=== PATIENT | female | born 1940 | race Caucasian/White ===

== ENCOUNTER 2020-10-19 10:16 | Observation (INO) | payer MEDICARE ==
--- NOTE | 2020-10-19 10:43 | ED ---
General Adult HPI - General Chief complaint: Syncope Stated complaint: Syncope Time Seen by Provider: 10/19/20 10:17 Source: patient Mode of arrival: ambulatory Limitations: no limitations - History of Present Illness Initial comments: Dictation was produced using [email or web address] dictation software. please excuse any grammatical, word or spelling errors. Chief Complaint: 80-year-old female past medical history dyslipidemia and hypertension, bowel obstruction presents with syncope and abdominal pain History of Present Illness: 80-year-old female she states she was with her for his appointment with the vascular surgeon. During that appointment at 1-2 hours ago patient began having abdominal pain and feeling faint. Patient states she has history of abdominal obstruction. She states her pain is to the periumbilical area cramping. Nonradiating. She states that it's mild to moderate. Not severe. She has a history of bowel obstruction which feels similar. Denies any vomiting but she does feel nauseated. No diarrhea. She's been having regular bowel movements recently. She felt faint and the doctor's office. She states she did not lose consciousness. She denies any cardiac history. The ROS documented in this emergency department record has been reviewed and confirmed by me. Those systems with pertinent positive or negative responses have been documented in the HPI. All other systems are other negative and/or noncontributory. PHYSICAL EXAM: General Impression: Alert and oriented x3, not in acute distress HEENT: Normocephalic atraumatic, extra-ocular movements intact, pupils equal and reactive to light bilaterally, mucous membranes moist. Cardiovascular: Heart regular rate and rhythm Chest: Able to complete full sentences, no retractions, no tachypnea Abdomen: abdomen soft, diffuse abdominal palpatory tenderness, non-distended, no organomegaly Musculoskeletal: Pulses present and equal in all extremities, no peripheral edema Motor: no focal deficits noted Neurological: CN II-XII grossly intact, no focal motor or sensory deficits noted Skin: Intact with no visualized rashes Psych: Normal affect and mood ED course: 80-year-old presents to the emergency department for presyncope and abdominal pain. Laboratory evaluation obtained. CBC unremarkable. Metabolic panel shows mild prerenal azotemia secondary to dehydration. X-ray shows potential partial small bowel obstruction she is reevaluated bedside at 12:12 PM saying that her symptoms have not improved. This concerned that patient has an evolving bowel obstruction. She is agreeable with admission. Patient be admitted to [facility] hospitalist group. Gen. surgery be consulted. EKG interpretation: Ventricular rate 66, sinus rhythm, VT interval 210, QRS 80, QTC 427.. No VT prolongation, no QTC prolongation, no ST or T-wave changes noted. No old EKG for comparison. Overall, this EKG is unremarkable - Related Data Home Medications Medication Instructions Recorded Confirmed Aspirin EC [Ecotrin Low Dose] 81 mg PO HS 10/19/20 10/19/20 Atorvastatin [Lipitor] 20 mg PO HS 10/19/20 10/19/20 Cholecalciferol [Vitamin D3 (25 25 mcg PO BID 10/19/20 10/19/20 Mcg = 1000 Iu)] Cyanocobalamin (Vitamin B-12) 5,000 mcg PO DAILY 10/19/20 10/19/20 [Vitamin B12] Levothyroxine Sodium [Synthroid] 100 mcg PO DAILY 10/19/20 10/19/20 Multivitamins, Thera [Multivitamin 1 tab PO DAILY 10/19/20 10/19/20 (formulary)] Omeprazole 20 mg PO DAILY 10/19/20 10/19/20 Tamoxifen Citrate 20 mg PO DAILY 10/19/20 10/19/20 amLODIPine [Norvasc] 10 mg PO DAILY 10/19/20 10/19/20 Allergies Allergy/AdvReac Type Severity Reaction Status Date / Time No Known Allergies Allergy Verified 10/19/20 12:04 Review of Systems ROS Statement: Those systems with pertinent positive or pertinent negative responses have been documented in the HPI. ROS Other: All systems not noted in ROS Statement are negative. Past Medical History Past Medical History: Cancer, Hyperlipidemia, Hypertension, Thyroid Disorder History of Any Multi-Drug Resistant Organisms: None Reported Past Surgical History: Appendectomy, Breast Surgery, Cholecystectomy Additional Past Surgical History / Comment(s): Catact Past Psychological History: No Psychological Hx Reported Smoking Status: Never smoker Past Alcohol Use History: None Reported Past Drug Use History: None Reported General Exam Limitations: no limitations Course Vital Signs 10/19/20 10/19/20 10:17 11:22 Temperature 97.9 F Pulse Rate 71 68 Respiratory 18 18 Rate Blood Pressure 140/68 125/69 O2 Sat by Pulse 98 95 Oximetry Medical Decision Making - Lab Data Result diagrams: 10/19/20 10:56 10/19/20 10:56 Lab Results 10/19/20 10/19/20 Range/Units 10:56 10:56 WBC 9.1 (3.8-10.6) k/uL RBC 4.73 (3.80-5.40) m/uL Hgb 13.9 (11.4-16.0) gm/dL Hct 42.1 (34.0-46.0) % MCV 89.0 (80.0-100.0) fL MCH 29.3 (25.0-35.0) pg MCHC 32.9 (31.0-37.0) g/dL RDW 13.4 (11.5-15.5) % Plt Count 247 (150-450) k/uL MPV 7.8 Neutrophils % 82 % Lymphocytes % 11 % Monocytes % 4 % Eosinophils % 1 % Basophils % 0 % Neutrophils # 7.5 (1.3-7.7) k/uL Lymphocytes # 1.0 (1.0-4.8) k/uL Monocytes # 0.4 (0-1.0) k/uL Eosinophils # 0.1 (0-0.7) k/uL Basophils # 0.0 (0-0.2) k/uL Sodium 138 (137-145) mmol/L Potassium 4.7 (3.5-5.1) mmol/L Chloride 105 (98-107) mmol/L Carbon Dioxide 26 (22-30) mmol/L Anion Gap 7 mmol/L BUN 27 H (7-17) mg/dL Creatinine 0.65 (0.52-1.04) mg/dL Est GFR (CKD-EPI)AfAm >90 (>60 ml/min/1.73 sqM) Est GFR (CKD-EPI)NonAf 84 (>60 ml/min/1.73 sqM) Glucose 121 H (74-99) mg/dL Calcium 9.6 (8.4-10.2) mg/dL Magnesium 2.1 (1.6-2.3) mg/dL Total Bilirubin 0.3 (0.2-1.3) mg/dL AST 34 (14-36) U/L ALT 31 (4-34) U/L Alkaline Phosphatase 87 (38-126) U/L Total Protein 6.7 (6.3-8.2) g/dL Albumin 4.4 (3.5-5.0) g/dL Disposition Clinical Impression: Partial small bowel obstruction Disposition: ADMITTED IP TO THIS HOSP Condition: Fair Referrals: Ezio Randall MD [Primary Care Provider] - 1-2 days
[2020-10-19 11:06] LABS: Basophils % (A) 0 %; Eosinophils # (A) 0.1 k/uL (0-0.7); Eosinophils % (A) 1 %; HCT 42.1 % (34.0-46.0); HGB 13.9 gm/dL (11.4-16.0); Lymphocytes % (A) 11 %; MCH 29.3 pg (25.0-35.0); MCHC 32.9 g/dL (31.0-37.0); Mean Platelet Volume 7.8; Monocytes # (A) 0.4 k/uL (0-1.0); Monocytes % (A) 4 %; Neutrophils # (A) 7.5 k/uL (1.3-7.7); Neutrophils % (A) 82 %; Platelet Count 247 k/uL (150-450); RBC 4.73 m/uL (3.80-5.40); RDW 13.4 % (11.5-15.5); WBC 9.1 k/uL (3.8-10.6)
[2020-10-19 11:25] LABS: ALT 31 U/L (4-34); AST 34 U/L (14-36); African American GFR (CKD) >90 (>60 ml/min/1.73 sqM); Albumin 4.4 g/dL (3.5-5.0); Alkaline Phosphatase 87 U/L (38-126); Anion Gap 7 mmol/L; Blood Urea Nitrogen 27 mg/dL (7-17); Calcium 9.6 mg/dL (8.4-10.2); Carbon Dioxide 26 mmol/L (22-30); Chloride 105 mmol/L (98-107); Glucose 121 mg/dL (74-99); Magnesium 2.1 mg/dL (1.6-2.3); Non-African American GFR(CKD) 84 (>60 ml/min/1.73 sqM); Potassium 4.7 mmol/L (3.5-5.1); Sodium 138 mmol/L (137-145); Total Bilirubin 0.3 mg/dL (0.2-1.3); Total Protein 6.7 g/dL (6.3-8.2)
--- NOTE | 2020-10-19 11:49 | XR ---
EXAMINATION TYPE: XR abdomen acute w cxr DATE OF EXAM: 10/19/2020 COMPARISON: None HISTORY: Abdomen pain history of obstruction TECHNIQUE: Abdominal series performed with frontal chest upright and supine views of the abdomen FINDINGS: Heart size normal. Pulmonary vasculature is normal. Lungs are clear. No free air is under t he diaphragm There are air-fluid levels within the left mid abdomen. Differential air-fluid levels present. There is present within the colon. Correlate for partial small bowel obstruction. No free air is evident. No mass effect is evident. Degenerative changes are within the lumbar spine. IMPRESSION: 1. Findings which could correlate with partial small bowel obstruction jejunum. Clinical correlation recommended.
[2020-10-19] MEDS ORDERED: SODIUM CHLORIDE 0.9% 1,000 ML IV STA (11:52)
[2020-10-19] MEDS ORDERED: NALOXONE 0.4 MG/ML 1 ML VIAL IV PRN (12:10)
[2020-10-19] MEDS: SODIUM CHLORIDE 0.9% 1,000 ML IV SCH (12:30)
[2020-10-19] MEDS: CHOLECALCIFEROL 25 MCG (1000 IU) TABLET PO SCH (20:22)
[2020-10-19] MEDS ORDERED: ATORVASTATIN 20 MG TAB PO SCH (21:00)
[2020-10-19] MEDS ORDERED: ASPIRIN 81 MG PO SCH (21:00)
--- NOTE | 2020-10-19 23:50 | P.HPIM ---
History of Present Illness H&P Date: 10/19/20 Chief Complaint: Abdominal pain Patient is a 80-year-old female with a known history of hypertension, hypothyroidism, hyperlipidemia, left breast cancer status post surgery and radiation 2016 and prior history of bowel obstruction presents to ER with the complaints of abdominal pain and syncopal episode. Patient states that she was with her for his appointment with the vascular surgeon. Patient started having abdominal pain and felt like fainting. Denied any loss of consciousness. She also having cramping abdominal pain mainly in the periymbillical reason.. Patient was nauseated but no episodes of vomiting. No fever no chills. Denied any recent diarrhea. No recent illnesses. Acute abdominal series showed findings which could correlate with partial small bowel obstruction jejunum. Clinical correlation recommended. Laboratory data showed WBC 9.1 hemoglobin 13.9 and platelets 247 Sodium 138 potassium 4.7 chloride 105 BUN 27 and creatinine 2.65 and blood sugar is 121. Liver enzymes are not elevated Review of Systems Constitutional: Patient denies any fever or chills . No generalized weakness or weight loss. Abdomen: Patient does have cramping abdominal pain. Nausea and vomiting. no constipation.. Cardiovascular: Patient denies any chest pain or short of breath no palpitations. Respiratory: patient denied any cough is from production. No shortness of breath Neurologic: Patient denied any numbness or tingling headache. Musculoskeletal: Patient denies any complaints of joint swelling or deformity. Skin: Negative Psychiatric: Negative Endocrine: No heat or cold intolerance. No recent weight gain. Genitourinary: No dysuria or hematuria. All other 14 point ROS negative except the above Past Medical History Past Medical History: Cancer, Hyperlipidemia, Hypertension, Thyroid Disorder Additional Past Medical History / Comment(s): left breast cancer with sx and radiation 2016 History of Any Multi-Drug Resistant Organisms: None Reported Past Surgical History: Appendectomy, Breast Surgery, Cholecystectomy, Hysterectomy Additional Past Surgical History / Comment(s): Cataract Past Psychological History: No Psychological Hx Reported Smoking Status: Never smoker Past Alcohol Use History: None Reported Past Drug Use History: None Reported Medications and Allergies Home Medications Medication Instructions Recorded Confirmed Type Aspirin EC [Ecotrin Low Dose] 81 mg PO HS 10/19/20 10/19/20 History Atorvastatin [Lipitor] 20 mg PO HS 10/19/20 10/19/20 History Cholecalciferol [Vitamin D3 (25 25 mcg PO BID 10/19/20 10/19/20 History Mcg = 1000 Iu)] Cyanocobalamin (Vitamin B-12) 5,000 mcg PO DAILY 10/19/20 10/19/20 History [Vitamin B12] Levothyroxine Sodium [Synthroid] 100 mcg PO DAILY 10/19/20 10/19/20 History Multivitamins, Thera [Multivitamin 1 tab PO DAILY 10/19/20 10/19/20 History (formulary)] Omeprazole 20 mg PO DAILY 10/19/20 10/19/20 History Tamoxifen Citrate 20 mg PO DAILY 10/19/20 10/19/20 History amLODIPine [Norvasc] 10 mg PO DAILY 10/19/20 10/19/20 History Allergies Allergy/AdvReac Type Severity Reaction Status Date / Time No Known Allergies Allergy Verified 10/19/20 12:04 Physical Exam Vitals: Vital Signs Temp Pulse Pulse Resp BP BP Pulse Ox 10/19/20 19:05 97.6 F 76 18 145/73 97 10/19/20 18:03 97.5 F L 78 14 143/71 98 10/19/20 17:35 97.9 F 71 18 136/66 95 10/19/20 17:00 71 18 136/66 95 10/19/20 16:00 75 18 125/66 95 10/19/20 15:00 81 18 125/66 95 10/19/20 14:00 78 18 95 10/19/20 13:00 70 18 95 10/19/20 12:00 73 18 130/64 95 10/19/20 11:22 68 18 125/69 95 10/19/20 10:17 97.9 F 71 18 140/68 98 Intake and Output 10/19/20 10/19/20 10/19/20 06:59 14:59 22:59 Other: Weight 70.307 kg 70.307 kg PHYSICAL EXAMINATION: Patient is lying in the bed comfortably, no acute distress, awake alert and oriented.. HEENT: Normocephalic. Neck is supple. Pupils reactive. Nostrils clear. Oral cav ity is moist. Neck reveals no JVD, carotid bruits, or thyromegaly. CHEST EXAMINATION: Trachea is central. Symmetrical expansion. Lung knight clear to auscultation and percussion. CARDIAC: Normal S1, S2 with no gallops. No murmurs ABDOMEN: Soft. Bowel sounds present. Bowel sounds normal. No organomegaly. No abdominal bruits. Extremities: reveal no edema. No clubbing or cyanosis Neurologically awake, alert, oriented x3 with well-coordinated movements. No focal deficits noted Skin: No rash or skin lesions. Psychiatric: Coperative. Nonsuicidal Musculoskeletal: No joint swelling or deformity. Normal range of motion. Results CBC & Chem 7: 10/19/20 10:56 10/19/20 10:56 Labs: Abnormal Lab Results - Last 24 Hours (Table) 10/19/20 Range/Units 10:56 BUN 27 H (7-17) mg/dL Glucose 121 H (74-99) mg/dL Thrombosis Risk Factor Assmnt - DVT/VTE Prophylaxis DVT/VTE Prophylaxis: Pharmacologic Prophylaxis ordered - Choose All That Apply Any of the Below Risk Factors Present?: No Other Risk Factors: Yes Each Risk Factor Represents 3 Points: Age 75 years or older Thrombosis Risk Factor Assessment Total Risk Factor Score: 3 Thrombosis Risk Factor Assessment Level: Moderate Risk Assessment and Plan Assessment: Abdominal pain secondary to small bowel obstruction. Improving. Presyncopal episode secondary to above Prior history of abdominal surgeries and history of bowel obstruction. Hypertension Hyperlipidemia Hypothyroidism History of breast cancer status post surgery and radiation in 2017 DVT prophylaxis with heparin subcu Plan: Next and patient be continued on IV hydration and replace electrolytes. Patient is able to pass flatness and will be started on clear liquid diet. Abdominal pain is improving. General surgery was consulted for evaluation. Continue the home medications and follow closely.
[2020-10-20] MEDS: SODIUM CHLORIDE 0.9% 1,000 ML IV SCH ×2 (02:12→16:01)
[2020-10-20] MEDS ORDERED: LEVOTHYROXINE 100 MCG TAB PO SCH (06:30)
[2020-10-20] MEDS ORDERED: PANTOPRAZOLE 40 MG TABLET PO SCH (07:30)
[2020-10-20 07:59] VITALS: RESP 16
[2020-10-20] MEDS: CHOLECALCIFEROL 25 MCG (1000 IU) TABLET PO SCH (08:18)
--- NOTE | 2020-10-20 08:30 | P.GSCN ---
History of Present Illness Consult date: 10/19/20 History of present illness: Patient seen and evaluated. She reports multiple prior histories of bowel obstruction. She is on clear liquid diet and tolerating. Abdominal pain has improved. Surgical options for outpatient lysis of adhesions also reviewed should symptoms recur. At this time continue clear liquid diet is her symptoms are improving. We'll continue to follow. Past Medical History Past Medical History: Cancer, Hyperlipidemia, Hypertension, Thyroid Disorder Additional Past Medical History / Comment(s): left breast cancer with sx and radiation 2017 History of Any Multi-Drug Resistant Organisms: None Reported Past Surgical History: Appendectomy, Breast Surgery, Cholecystectomy, Hysterectomy Additional Past Surgical History / Comment(s): Cataract Past Psychological History: No Psychological Hx Reported Smoking Status: Never smoker Past Alcohol Use History: None Reported Past Drug Use History: None Reported Medications and Allergies Home Medications Medication Instructions Recorded Confirmed Type Aspirin EC [Ecotrin Low Dose] 81 mg PO HS 10/19/20 10/19/20 History Atorvastatin [Lipitor] 20 mg PO HS 10/19/20 10/19/20 History Cholecalciferol [Vitamin D3 (25 25 mcg PO BID 10/19/20 10/19/20 History Mcg = 1000 Iu)] Cyanocobalamin (Vitamin B-12) 5,000 mcg PO DAILY 10/19/20 10/19/20 History [Vitamin B12] Levothyroxine Sodium [Synthroid] 100 mcg PO DAILY 10/19/20 10/19/20 History Multivitamins, Thera [Multivitamin 1 tab PO DAILY 10/19/20 10/19/20 History (formulary)] Omeprazole 20 mg PO DAILY 10/19/20 10/19/20 History Tamoxifen Citrate 20 mg PO DAILY 10/19/20 10/19/20 History amLODIPine [Norvasc] 10 mg PO DAILY 10/19/20 10/19/20 History Allergies Allergy/AdvReac Type Severity Reaction Status Date / Time No Known Allergies Allergy Verified 10/19/20 12:04 Surgical - Exam Vital Signs Temp Pulse Resp BP Pulse Ox 97.9 F 71 18 140/68 98 10/19/20 10:17 10/19/20 10:17 10/19/20 10:17 10/19/20 10:17 10/19/20 10:17 Results - Labs 10/19/20 10:56 10/19/20 10:56 Abnormal Lab Results - Last 24 Hours (Table) 10/19/20 Range/Units 10:56 BUN 27 H (7-17) mg/dL Glucose 121 H (74-99) mg/dL Diabetes panel 10/19/20 Range/Units 10:56 Sodium 138 (137-145) mmol/L Potassium 4.7 (3.5-5.1) mmol/L Chloride 105 (98-107) mmol/L Carbon Dioxide 26 (22-30) mmol/L BUN 27 H (7-17) mg/dL Creatinine 0.65 (0.52-1.04) mg/dL Glucose 121 H (74-99) mg/dL Calcium 9.6 (8.4-10.2) mg/dL AST 34 (14-36) U/L ALT 31 (4-34) U/L Alkaline Phosphatase 87 (38-126) U/L Total Protein 6.7 (6.3-8.2) g/dL Albumin 4.4 (3.5-5.0) g/dL Calcium panel 10/19/20 Range/Units 10:56 Calcium 9.6 (8.4-10.2) mg/dL Albumin 4.4 (3.5-5.0) g/dL Pituitary panel 10/19/20 Range/Units 10:56 Sodium 138 (137-145) mmol/L Potassium 4.7 (3.5-5.1) mmol/L Chloride 105 (98-107) mmol/L Carbon Dioxide 26 (22-30) mmol/L BUN 27 H (7-17) mg/dL Creatinine 0.65 (0.52-1.04) mg/dL Glucose 121 H (74-99) mg/dL Calcium 9.6 (8.4-10.2) mg/dL Adrenal panel 10/19/20 Range/Units 10:56 Sodium 138 (137-145) mmol/L Potassium 4.7 (3.5-5.1) mmol/L Chloride 105 (98-107) mmol/L Carbon Dioxide 26 (22-30) mmol/L BUN 27 H (7-17) mg/dL Creatinine 0.65 (0.52-1.04) mg/dL Glucose 121 H (74-99) mg/dL Calcium 9.6 (8.4-10.2) mg/dL Total Bilirubin 0.3 (0.2-1.3) mg/dL AST 34 (14-36) U/L ALT 31 (4-34) U/L Alkaline Phosphatase 87 (38-126) U/L Total Protein 6.7 (6.3-8.2) g/dL Albumin 4.4 (3.5-5.0) g/dL
[2020-10-20] MEDS ORDERED: CYANOCOBALAMIN 500 MCG TAB PO SCH (09:00)
[2020-10-20] MEDS ORDERED: amLODIPine 10 MG TAB PO SCH (09:00)
[2020-10-20] MEDS ORDERED: TAMOXIFEN 10 MG TAB PO SCH (09:00)
[2020-10-20] MEDS ORDERED: MULTIVITAMINS, THERA 1 EACH TAB PO SCH (09:00)
--- NOTE | 2020-10-20 11:22 | P.PN ---
Subjective Progress Note Date: 10/20/20 CHIEF COMPLAINT: Abdominal pain HISTORY OF PRESENT ILLNESS: Surgical services following patient in regards to her partial small bowel obstruction. Patient reports having passed gas and had bowel movement. She reports that her abdominal pain is gone. She feels some soreness in her stomach. She denies any nausea or vomiting. She tolerated her clear liquid diet. She is asking about when she can be discharged home. Afebrile no new labs for today PHYSICAL EXAM: VITAL SIGNS: Reviewed GENERAL: Well-developed in no acute distress. HEENT: No sclera icterus. Extraocular movements grossly intact. Moist buccal mucosa. Head is atraumatic, normocephalic. Hears conversational speech. No nasal drain age. NECK: Supple without lymphadenopathy. CHEST: Non-labored respirations and equal bilateral excursions. CARDIOVASCULAR: Palpable 2+ radial pulses. ABDOMEN: Soft. Nondistended. Nontender. MUSCULOSKELETAL: No clubbing or cyanosis. NEUROLOGIC: No focal or lateralizing signs. Cranial nerves II through XII grossly intact. PSYCH: Appropriate affect. Alert and oriented to person, place and time. SKIN: Well perfused. Good skin turgor. ASSESSMENT: 1. Partial small bowel obstruction possibly due to adhesions. Now resolved 2. Prior history of small bowel obstruction 3. History of abdominal surgeries PLAN: -Advance diet to a full liquid diet for lunch and soft diet for dinner -Patient can be discharged today from surgical standpoint if she tolerates her lunch -Continue conservative management -No surgical intervention planned at this time Physician Healthcare Management Consultant note has been reviewed by physician. Signing provider agrees with the documented findings, assessment, and plan of care. Objective - Vital Signs Vital signs: Vital Signs Temp 97.9 F 10/20/20 07:00 Pulse 67 10/20/20 07:00 Resp 16 10/20/20 07:00 BP 138/83 10/20/20 07:00 Pulse Ox 97 10/20/20 07:00 Intake & Output 10/19/20 10/20/20 10/20/20 18:59 06:59 18:59 Weight 70.307 kg Other: Voiding Method Toilet # Voids 1 - Labs CBC & Chem 7: 10/19/20 10:56 10/19/20 10:56 Labs: Abnormal Lab Results - Last 24 Hours (Table) 10/19/20 Range/Units 10:56 BUN 27 H (7-17) mg/dL Glucose 121 H (74-99) mg/dL
[2020-10-20 13:58] VITALS: BP 115/66; PULSE 84; TEMP 97.8
== END 2020-10-20 18:30 | disposition home or self-care (01) ==
LOC: EC 10:16 → 1SOBS 12:10 → 6NMEDSUR 16:23
PROVIDERS: ADMIT Internal Medicine; ATTEND Internal Medicine
DX: K56.600 Partial intestinal obstruction, unspecified as to cause (principal); E03.9 Hypothyroidism, unspecified; E78.5 Hyperlipidemia, unspecified; E86.0 Dehydration; I10 Essential (primary) hypertension; Z79.890 Hormone replacement therapy; Z79.899 Other long term (current) drug therapy; Z85.3 Personal history of malignant neoplasm of breast; Z90.710 Acquired absence of both cervix and uterus; Z92.3 Personal history of irradiation
CPT/HCPCS: 99285; 96360; 36415; 93005; 80053; 83735; 85025; 74022; G0378 ×3; S0187